=== PATIENT | female | born 1945 | race Caucasian/White ===

== ENCOUNTER 2016-05-25 17:44 | Observation (INO) ==
--- NOTE | 2016-05-25 17:55 | Emergency Department Note ---
Disposition Clinical Impression: Altered mental status, Hyperkalemia, Medication intolerance, Hilar mass Disposition: Admitted As Inpatient Condition: Fair Time of Disposition: 19:09 (savanna man) Altered Mental Status HPI - General Chief Complaint: ED Altered Mental Status Stated Complaint: ams Time Seen by Provider: 05/25/16 17:47 Source: patient Mode of arrival: ambulatory Limitations: no limitations Nursing Notes Reviewed: Yes Vital Signs Reviewed: Yes - History of Present Illness HPI Narrative: Pleasant 70-year-old female had surgery on Thursday had a pacemaker later placed according to family is only a defibrillator and today had periods of confusion may call this for about 2:00 today in the afternoon at the squad canceled then patient continued to have periods of confusion and difficulty arousing as a result squad was called to the house upon arrival patient was found diaphoretic fashion hypotensive bradycardic patient was given Narcan had some significant improvement in her overall presentation sat up on the squad bed started talking to EMS family states that this is been an ongoing issues have been intermittent late they state that she has 2 new medications or heart medications but when the pharmacy was contacted it was only Percocet and OxyContin as result this could have been a possible medication issue as well as past metabolic or infectious etiology family's had her sent in for evaluation MD complaint: confusion Onset (ago): hour(s) (12) Timing confirmed by: spouse, family member Consistency of Symptoms: waxing and waning Context: other (recent surgery and medication change) Associated symptoms: Reports: difficulty walking. Denies: chest pain, cough, diaphoresis, fever, chills, headaches, loss of appetite, malaise, nausea/ vomiting, rash, seizure, shortness of breath, syncope, weakness, foul smelling urine, incontinence - Related Data Home Medications Medication Instructions Recorded Confirmed Esomeprazole Magnesium [Nexium] 20 mg PO QAM 04/25/15 05/25/16 Gabapentin [Neurontin] 100 mg PO TID 04/25/15 05/25/16 Metoprolol [Lopressor] 25 mg PO BID 04/25/15 05/25/16 OxyCODONE ER (12 HR) [OxyCONTIN] 10 mg PO Q12HR 04/25/15 05/25/16 OxyCODONE ER (12 HR) [OxyCONTIN] 60 mg PO Q12HR 04/25/15 05/25/16 Paroxetine [Paxil] 20 mg PO DAILY 04/25/15 05/25/16 Erythromycin Base [Erythromycin] 250 mg PO DAILY 05/06/16 05/25/16 Previous Rx's Medication Instructions Recorded Aspirin 81 mg PO DAILY 365 Days 04/26/15 Budesonide/Formoterol 160/4.5 2 puff IH BIDR #1 hfa.aer.ad 04/26/15 [Symbicort] CloNIDine HCl 0.2 mg PO BID #120 tablet 04/26/15 Allergies Allergy/AdvReac Type Severity Reaction Status Date / Time povidone-iodine Allergy Hives Verified 05/06/16 14:46 [From Betadine] prednisone Allergy Hives Verified 05/06/16 14:46 promethazine [From Phenergan] Allergy Confusion Verified 05/06/16 14:46 soap [From Betadine] Allergy Hives Verified 05/06/16 14:46 All systems ED: reviewed and negative except as stated. Constitutional: Reports: weakness. Denies: fever, chills Eyes: Denies: eye pain, eye discharge, vision change ENT ED: Denies: ear pain Cardiovascular: Denies: chest pain, palpitations, dyspnea on exertion Respiratory: Denies: cough, dyspnea, wheezes Gastrointestinal: Reports: constipation. Denies: abdominal pain, nausea, vomiting Genitourinary: Denies: urgency, dysuria Musculoskeletal: Denies: back pain, neck pain Integumentary: Denies: rash, abrasion, lesions Neurological: Reports: weakness, confusion. Denies: headache, numbness, paresthesias Psychiatric: Denies: anxiety, depression Endocrine: Reports: fatigue. Denies: heat or cold intolerance, polydipsia Hematological/Lymphatic: Denies: easy bleeding, easy bruising Allergic/Immunologic: Denies: facial swelling Past Medical History - Past Medical History Attestation: Yes The following information was validated with the patient. Source: patient, old records reviewed, nursing notes reviewed Medical history: Reports: asthma, COPD, hyperlipidemia, hypertension, thyroid disease Surgical history: Reports: other Psychiatric history: Reports: anxiety, bipolar, depression, panic disorder ADVERTISING ACCOUNT MANAGER history: Reports: no ADVERTISING ACCOUNT MANAGER history - Social History Smoking Status: Current every day smoker Smokeless Tobacco Status: No Alcohol use: Reports: none Drug use: Reports: none Physical Exam - General Limitations: no limitations General appearance: alert, in no apparent distress, lethargic, obese - Head Head exam: atraumatic, normocephalic, normal inspection - Eye Eye exam: Present: normal appearance, PERRL, EOMI - ENT ENT exam: normal exam, normal oropharynx, mucous membranes moist, TM's normal bilaterally, normal external ear exam - Neck Neck exam: Present: normal inspection, full ROM, trachea midline - Chest Chest inspection: Present: normal inspection, symmetric chest wall rise, other ( Recent surgical site well approximated no drainage not red hot tender or inflamed) - Respiratory Respiratory exam: Present: normal lung sounds bilaterally - Cardiovascular Cardiovascular exam: Present: regular rate, normal rhythm, normal heart sounds - Abdominal Exam Abdominal exam: Present: soft, Non-Tender, normal bowel sounds. Absent: mass, pulsatile mass - Expanded Upper Extremity Exam Shoulder exam: Present: normal inspection, full ROM Arm exam: Present: normal inspection, full ROM Elbow exam: Present: normal inspection, full ROM Forearm/Wrist exam: Present: normal inspection, full ROM Hand exam: Present: normal inspection, full ROM Vascular exam: Normal: capillary refill, radial pulse - Expanded Lower Extremity Exam Hip/Pelvis exam: Present: normal inspection, full ROM Upper leg exam: Present: normal inspection, full ROM Knee exam: Present: normal inspection, full ROM Lower leg exam: Present: normal inspection, full ROM Ankle exam: Present: normal inspection, full ROM Foot/toe exam: Present: normal inspection, full ROM Neurovascular/Tendon exam: Present: normal capillary refill, normal fine/light touch. Absent: motor deficit, sensory deficit, tendon deficit - Back Exam Back exam: Present: normal inspection, full ROM - Neurological Exam Neurological exam: Present: alert, oriented X3, CN II-XII intact - Psychiatric Psychiatric exam: Present: normal affect, normal mood - Skin Skin exam: Present: warm, dry, intact, normal color Course Course Narrative: Patient had been given Narcan per EMS patient arrives is now alert and answering questions appropriately patient states that she just recently had a pacemaker with conversation patient was medication change with her OxyContin and her Percocet as a result this may benefit can she pitting factor to it which is why the squad gave her Narcan which did seem to appropriately responsive to her in addition we checked labs and make sure she was not septic or have an intracranial bleed all of this is come back negative with the exception of the potassium being elevated at 6 as result patient be given That she will be monitored overnight patient's transfer to [facility] service is Dr. Farias patient family agreeable very comfortable plan with paln at this time Vital Signs Temperature 98.1 F 05/25/16 17:47 Pulse Rate 61 05/25/16 17:47 Respiratory Rate 18 05/25/16 17:47 Blood Pressure 155/31 05/25/16 17:47 O2 Sat by Pulse Oximetry 97 05/25/16 17:47 Temperature 98.1 F 05/26/16 03:35 Pulse Rate 53 05/26/16 03:35 Respiratory Rate 18 05/26/16 03:35 Blood Pressure 122/72 05/26/16 03:35 O2 Sat by Pulse Oximetry 97 05/26/16 03:35 Oxygen Delivery Oxygen Delivery Nasal Cannula Altered Mental Status - Differential Diagnosis Likely: altered mental status, delirium, dementia, hyponatremia, sepsis, substance use - Medical Records Medical records reviewed: Yes I reviewed the patient's medical records. - Lab Data Lab results reviewed: Yes I reviewed the patient's lab results. Result diagrams: 05/25/16 18:00 05/25/16 18:00 Lab Results 05/25/16 05/25/16 05/25/16 Range/Units 18:00 18:00 18:00 WBC 10.9 (4.3-11.1) K/mcL RBC 3.59 L (3.82-4.97) M/mcL Hgb 10.7 L (11.5-15.4) g/dL Hct 34.1 L (35.3-44.9) % MCV 95.0 (83.0-100.0) fL MCH 29.8 (28.0-33.3) pg MCHC 31.4 L (31.6-35.5) g/dL RDW 15.6 H (11.5-14.5) % Plt Count 364 (140-400) K/mcL MPV 9.6 (9.4-12.4) fL Immature Gran % 0.4 (0-4) % Seg Neutrophils % 48.5 % Lymphocytes % 30.7 % Monocytes % 5.5 % Eosinophils % 14.2 % Basophils % 0.7 % Neutrophils # 5.3 (1.6-8.9) K/mcL Lymphocytes # 3.4 (0.6-4.6) K/mcL Monocytes # 0.6 (0.0-1.3) K/mcL Eosinophils # 1.6 H (0.0-0.6) K/mcL Basophils # 0.1 (0.0-0.2) K/mcL PT 13.4 H (9.4-12.1) Seconds INR 1.2 APTT 28.0 (26.0-36.0) Seconds Sodium 140 (136-145) mEq/L Potassium 5.9 H (3.5-4.5) mEq/L Chloride 105 (98-109) mEq/L Carbon Dioxide 26 (19-29) mEq/L BUN 18 (7-20) mg/dL Creatinine 1.67 H (0.57-1.11) mg/dL Est GFR ( Amer) 37 L (> 60) Est GFR (Non-Af Amer) 30 L (> 60) BUN/Creatinine Ratio 11 (6-26) Glucose 82 (70-99) mg/dL Calculated Osmolality 291 (280-300) Calcium 9.3 (8.6-10.8) mg/dL B-Natriuretic Peptide (0-100) pg/mL 05/25/16 Range/Units 18:00 WBC (4.3-11.1) K/mcL RBC (3.82-4.97) M/mcL Hgb (11.5-15.4) g/dL Hct (35.3-44.9) % MCV (83.0-100.0) fL MCH (28.0-33.3) pg MCHC (31.6-35.5) g/dL RDW (11.5-14.5) % Plt Count (140-400) K/mcL MPV (9.4-12.4) fL Immature Gran % (0-4) % Seg Neutrophils % % Lymphocytes % % Monocytes % % Eosinophils % % Basophils % % Neutrophils # (1.6-8.9) K/mcL Lymphocytes # (0.6-4.6) K/mcL Monocytes # (0.0-1.3) K/mcL Eosinophils # (0.0-0.6) K/mcL Basophils # (0.0-0.2) K/mcL PT (9.4-12.1) Seconds INR APTT (26.0-36.0) Seconds Sodium (136-145) mEq/L Potassium (3.5-4.5) mEq/L Chloride (98-109) mEq/L Carbon Dioxide (19-29) mEq/L BUN (7-20) mg/dL Creatinine (0.57-1.11) mg/dL Est GFR ( Amer) (> 60) Est GFR (Non-Af Amer) (> 60) BUN/Creatinine Ratio (6-26) Glucose (70-99) mg/dL Calculated Osmolality (280-300) Calcium (8.6-10.8) mg/dL B-Natriuretic Peptide 215 H (0-100) pg/mL - Radiology Data Radiology results reviewed: Yes I reviewed the patient's radiology results. ITS Impressions Chest X-Ray 05/25/16 17:49 IMPRESSION: Interval placement of left subclavian approach pacemaker/ AICD. No evidence of pneumothorax. Unchanged masslike opacity right perihilar region. No new consolidation noted. D/ / Zaire Johnson MD / Zaire Johnson MD Interpreting Provider: Zaire Johnson MD Head CT 05/25/16 17:49 IMPRESSION: Somewhat limited by motion artifact. Otherwise, no acute intracranial abnormality detected. D/ / Dayan Bach MD / Dayan Bach MD Interpreting Provider: Dayan Bach MD - EKG Data EKG attestation: Yes I reviewed and interpreted this EKG. EKG results narrative: Rhythm Sinus Alexis Heart Rate 57 PA 19 QRS 98 QT 372 Axes 39 TPA Checklist - LKW: 3-4.5 hrs Add. Contraindications Patient/family understanding: The patient/family members have been counseled and understood the risk, benefit , and alternatives of treatment. Critical Care Time Critical Care Time: No
[2016-05-25 18:12] LABS: Basophils # 0.1 K/mcL (0.0-0.2); Basophils % 0.7 %; Eosinophils # 1.6 K/mcL (0.0-0.6); Eosinophils % 14.2 %; Hematocrit 34.1 % (35.3-44.9); Hemoglobin 10.7 g/dL (11.5-15.4); Immature Granulocytes % 0.4 % (0-4); Lymphocytes # 3.4 K/mcL (0.6-4.6); Lymphocytes % 30.7 %; Mean Corpuscular HGB Conc 31.4 g/dL (31.6-35.5); Mean Corpuscular Hemoglobin 29.8 pg (28.0-33.3); Mean Platelet Volume 9.6 fL (9.4-12.4); Monocytes # 0.6 K/mcL (0.0-1.3); Monocytes % 5.5 %; Neutrophils # 5.3 K/mcL (1.6-8.9); Platelet Count 364 K/mcL (140-400); Red Blood Count 3.59 M/mcL (3.82-4.97); Red Cell Distribution Width 15.6 % (11.5-14.5); Segmented Neutrophils % 48.5 %
[2016-05-25 18:17] LABS: INR 1.2; Prothrombin Time 13.4 Seconds (9.4-12.1)
[2016-05-25 18:24] LABS: Calcium 9.3 mg/dL (8.6-10.8); Potassium 5.9 mEq/L (3.5-4.5)
[2016-05-25] MEDS ORDERED: Naloxone 0.4 MG/ML INJ IVP PRN (20:14)
[2016-05-25] MEDS ORDERED: *HR* OxyCODONE/APAP 5/325 TABLET PO ONE (20:14)
[2016-05-25] MEDS ORDERED: Ondansetron 4 MG/2 ML VIAL IVP PRN (20:14)
[2016-05-25] MEDS: 0.9 % Sodium Chloride 1,000 ML IVC SCH (20:35)
[2016-05-25] MEDS: Gabapentin 100 MG CAPSULE PO SCH (21:48)
[2016-05-25] MEDS: Budesonide/Formoterol 160/4.5 MDI IH SCH (22:51)
[2016-05-26] MEDS: 0.9 % Sodium Chloride 1,000 ML IVC SCH (06:59)
[2016-05-26] MEDS: *HR* OxyCODONE ER (12 HR) 10 MG TABLET PO SCH ×2 (07:01→07:04)
[2016-05-26 07:11] LABS: Basophils # 0.1 K/mcL (0.0-0.2); Eosinophils # 1.4 K/mcL (0.0-0.6); Eosinophils % 16.8 %; Hematocrit 31.6 % (35.3-44.9); Immature Granulocytes % 0.2 % (0-4); Lymphocytes # 2.5 K/mcL (0.6-4.6); Lymphocytes % 30.4 %; Mean Corpuscular HGB Conc 31.6 g/dL (31.6-35.5); Mean Corpuscular Volume 94.9 fL (83.0-100.0); Mean Platelet Volume 10.3 fL (9.4-12.4); Monocytes # 0.5 K/mcL (0.0-1.3); Monocytes % 6.5 %; Neutrophils # 3.7 K/mcL (1.6-8.9); Platelet Count 351 K/mcL (140-400); Red Blood Count 3.33 M/mcL (3.82-4.97); Red Cell Distribution Width 15.8 % (11.5-14.5); Segmented Neutrophils % 45.1 %
[2016-05-26 07:17] LABS: INR 1.2; Prothrombin Time 13.1 Seconds (9.4-12.1)
[2016-05-26 07:20] LABS: Activated Partial Thrombo Time 28.3 Seconds (26.0-36.0)
[2016-05-26] MEDS ORDERED: Aspirin 81 MG TAB.CHEW PO SCH (09:00)
[2016-05-26 09:04] LABS: Calcium 8.9 mg/dL (8.6-10.8)
[2016-05-26] MEDS: Budesonide/Formoterol 160/4.5 MDI IH SCH (09:27)
[2016-05-26] MEDS: *HR* OxyCODONE/APAP 5/325 TABLET PO PRN ×2 (09:32→14:06)
[2016-05-26] MEDS: Gabapentin 100 MG CAPSULE PO SCH ×2 (09:32→14:06)
--- NOTE | 2016-05-26 10:42 | Internal Med History&Physical ---
Date of Encounter: 05/26/16 Time of Encounter: 10:10 Assessment and Plan (1) Altered mental status Current visit: Yes Status: Acute Appears resolved. Suspect secondary to febrile illness and medication use. We will observe without further workup Qualifiers: Altered mental status type: unspecified Qualified Code(s): R41.82 - Altered mental status, unspecified (2) Hilar mass Current visit: Yes Status: Acute Will order repeat chest CT (3) Hyperkalemia Current visit: Yes Status: Acute Improved. Potassium level this morning is 5.0. Suspect due to renal insufficiency. We will continue to monitor. (4) CKD (chronic kidney disease) stage 3, GFR 30-59 ml/min Current visit: No Status: Chronic I recommended she follow with a buttermaker continuous churn. (5) Hypertension Current visit: No Status: Chronic Continue Lopressor and monitor blood pressure. Qualifiers: Hypertension type: essential hypertension Qualified Code(s): I10 - Essential (primary) hypertension Internal Medicine - H&P: HPI Chief complaint: Fever and lethargy Admitted From: Home Plans for Post Hospital Care: Home History of present illness: Ms. Pardo is a 70 year old female who was noted by family members to have confusion and low-grade fever earlier the morning of admission. Her temperature was 99-100 F. There was no significant cough or vomiting or diarrhea. She received 3 Tylenol at home and her fever lessened but the confusion did not improve and she became diaphoretic. She was brought to emergency room for evaluation. She was admitted to [facility] floor for ongoing care needs. She states her mental status is back to baseline now. She was hospitalized [facility] 4 weeks ago with pneumonia. A chest CT showed a 1.9 x 3.1 cm right hilar mass. There was single pulmonary nodule approximately 6.5 mm in the left upper lobe possibly representing metastatic focus. She was transferred to [facility] for further evaluation. She reports that bronchoscopy at [facility] showed no mass. There was no other workup done for the right hilar abnormality and was discharged home with a diagnosis of pneumonia. She came back to the emergency room at [facility] a few days later and was transferred to [facility] where a pacemaker defibrillator was placed. The precise qualifying diagnosis for this procedure is unknown to the patient and her daughter. Her respiratory history is significant for having smoked since age 13 up to 1 pack per day. She has not had PFTs but claims a diagnosis of COPD. She does not wear home oxygen. She has had negative testing for [place]. Past Med Surg Social Fam HX - Past Medical History Medical history: asthma, COPD, hyperlipidemia, hypertension, thyroid disease Psychiatric history: anxiety, bipolar, depression, panic disorder - Past Surgical History Surgical History: other - Social History Smoking Status: Current every day smoker Smokeless Tobacco Status: No Alcohol use: none Drug use: none - Family History Mother Living Status: Hx Family Cardiac Disorders: Yes Hx Family Cancer: Yes Hx Family Endocrine Disorder: Yes Father Adopted: No Living Status: Hx Family Cardiac Disorders: Yes Hx Family Respiratory Disorders: Yes Hx Family Cancer: Yes Hx Family Endocrine Disorder: Yes Internal Medicine - H&P: Meds Esomeprazole Magnesium [Nexium] 20 mg PO QAM 04/25/15 [History] Gabapentin [Neurontin] 100 mg PO TID 04/25/15 [History] Metoprolol [Lopressor] 25 mg PO BID 04/25/15 [History] OxyCODONE ER (12 HR) [OxyCONTIN] 10 mg PO Q12HR 04/25/15 [History] OxyCODONE ER (12 HR) [OxyCONTIN] 60 mg PO Q12HR 04/25/15 [History] Paroxetine [Paxil] 20 mg PO DAILY 04/25/15 [History] Aspirin 81 mg PO DAILY 365 Days 04/26/15 [Rx] Budesonide/Formoterol 160/4.5 [Symbicort] 2 puff IH BIDR #1 hfa.aer.ad 04/26/15 [Rx] CloNIDine HCl 0.2 mg PO BID #120 tablet 04/26/15 [Rx] Erythromycin Base [Erythromycin] 250 mg PO DAILY 05/06/16 [History] Allergies povidone-iodine [From Betadine] Allergy (Verified 05/06/16 14:46) Hives prednisone Allergy (Verified 05/06/16 14:46) Hives promethazine [From Phenergan] Allergy (Verified 05/06/16 14:46) Confusion soap [From Betadine] Allergy (Verified 05/06/16 14:46) Hives All Systems PM: A 10-system review of systems was performed and is negative for pertinent findings except as documented above in the HPI. Review of systems: Review of systems from her April 2016 [facility] history and physical were reviewed and revised as below. General: Her weight of 92.5 kg today is essentially unchanged from April 2014. Cardiovascular: She has a history of hypertension and heart failure but denies TX DVT or pulmonary embolus Respiratory: As per history of present illness GI: She has GERD and has had cholecystectomy. She denies disorders of her liver or exocrine pancreas : She has CKD stage III but does not follow with a buttermaker continuous churn. She denies other kidney or bladder disorders Neurologic: She has RLS but denies large distribution strokes. She has been noted by family in the past to have episodes of "jerking" and "staring off into space". She has not seen a neurologist. Endocrine: She has hyperlipidemia but no known diabetes or thyroid disease Hematology/oncology: She was diagnosed with rectal cancer approximately 2006. She had chemotherapy and XRT and is presumed cancer free. She denies other internal malignancies or anemia Psychiatric: She has depression and possible anxiety in the past. She denies other mental health issues Musk skeletal: She has chronic low back pain. She has had bilateral hip replacements and left TKR. She does not have known gout. She had a posterior popliteal neuroma removed and had a bunionectomy - Constitutional Vitals: Temp Pulse Resp BP Pulse Ox 98.5 F 54 18 118/54 94 L 05/26/16 06:30 05/26/16 06:30 05/26/16 09:27 05/26/16 06:30 05/26/16 09:27 Exam: Gen.: She is well-developed well-nourished female who appears in no severe distress at present time. HEENT: Head is atraumatic and normocephalic. Eyes: EOMI. There is no scleral icterus. Mouth: Mucosa is moist. Neck: Supple and nontender. There is no thyromegaly or adenopathy noted. Heart: Regular without murmurs gallops or ectopics. Lungs: No wheezes crackles or egophony is heard Chest: She has a incision in the left upper chest from recent ICD pacemaker placement. Steri-Strips are in place. Abdomen: Soft and nontender. No masses or guarding are noted. Extremities: There is no cyanosis or clubbing noted. There is trace edema at most of the dorsum of the feet and lower anterior shins. There are minimal DJD changes of her hands. Neurologic: Mental status: She is talkative and a good historian. Cranial nerves: Smile is symmetric. Forehead wrinkles bilaterally. Tongue protrudes midline. EOMI. Motor: There is no pronator drift. Cerebellar: Finger to nose is intact bilaterally. Skin: Warm and moist. Internal Med - H&P Results - Labs CBC & Chem 7: 05/26/16 06:15 05/26/16 06:15 Labs: Short CBC 05/26/16 Range/Units 06:15 WBC 8.2 (4.3-11.1) K/mcL Hgb 10.0 L (11.5-15.4) g/dL Hct 31.6 L (35.3-44.9) % Plt Count 351 (140-400) K/mcL Neutrophils # 3.7 (1.6-8.9) K/mcL BMP 05/26/16 06:15 Sodium 141 Potassium 5.0 H Chloride 107 Carbon Dioxide 26 BUN 19 Creatinine 1.57 H Glucose 84 Calcium 8.9
[2016-05-26 11:18] VITALS: BP 120/66
--- NOTE | 2016-05-26 12:50 | Discharge Summary ---
Date of Encounter: 05/26/16 Time of Encounter: 12:30 - Discharge Diagnosis (1) Altered mental status Priority: Primary Status: Resolved Qualifiers: Altered mental status type: unspecified Qualified Code(s): R41.82 - Altered mental status, unspecified (2) Hilar mass Priority: Secondary Status: Acute (3) Hyperkalemia Priority: Secondary Status: Acute (4) CKD (chronic kidney disease) stage 3, GFR 30-59 ml/min Priority: Secondary Status: Chronic (5) Hypertension Priority: Secondary Status: Chronic Qualifiers: Hypertension type: essential hypertension Qualified Code(s): I10 - Essential (primary) hypertension - Discharge Medications Home Medications: Esomeprazole Magnesium [Nexium] 20 mg PO QAM 04/25/15 [History] Gabapentin [Neurontin] 100 mg PO TID 04/25/15 [History] Metoprolol [Lopressor] 25 mg PO BID 04/25/15 [History] OxyCODONE ER (12 HR) [OxyCONTIN] 10 mg PO Q12HR 04/25/15 [History] OxyCODONE ER (12 HR) [OxyCONTIN] 60 mg PO Q12HR 04/25/15 [History] Paroxetine [Paxil] 20 mg PO DAILY 04/25/15 [History] Aspirin 81 mg PO DAILY 365 Days 04/26/15 [Rx] Budesonide/Formoterol 160/4.5 [Symbicort] 2 puff IH BIDR #1 hfa.aer.ad 04/26/15 [Rx] Erythromycin Base [Erythromycin] 250 mg PO DAILY 05/06/16 [History] Allergies/Adverse Reactions: Allergies povidone-iodine [From Betadine] Allergy (Verified 05/06/16 14:46) Hives prednisone Allergy (Verified 05/06/16 14:46) Hives promethazine [From Phenergan] Allergy (Verified 05/06/16 14:46) Confusion soap [From Betadine] Allergy (Verified 05/06/16 14:46) Hives Procedures/tests Complete & Pending: Procedures Performed prior 72 hours Category Date Time Status CT chest w/o contrast [CT chest wo con] [CT] Routine Cat Scan 05/26/16 10:48 Completed Date of admission: 05/25/16 19:26 Primary care physician: Irina Gold - Patient Status Disposition: Home, Self-Care Condition: Fair Overall status at discharge: patient is progressing back to baseline - Discharge Instructions Follow Up With: Irina Gold MD [Primary Care Provider] - 1 week - Diet and Activity Activity: resume usual activities as tolerated Diet: advance to your usual diet Hospital course: Ms. Pardo is a 70 year old female who was noted by family members to have confusion and low-grade fever earlier the morning of admission. Her temperature was 99-100 F. There was no significant cough or vomiting or diarrhea. She received 3 Tylenol at home and her fever lessened but the confusion did not improve and she became diaphoretic. She was brought to emergency room for evaluation. She was admitted to [facility] for ongoing care needs. Initial orders were written by the emergency room physician. I saw her on May 26 and performed a history and physical. Her mental status was back to baseline when I saw her. I did repeat CT of chest to follow-up on the right hilar mass seen one month earlier during [facility] stay. The right hilar mass had decreased in size to 1.9 x 1.2 cm. The left upper lobe noncalcified lesion was essentially unchanged. It was recommended a repeat chest CT be done in approximately [address] Gold can order this as an outpatient. Her blood pressure remains stable. She reported she had not been using clonidine at home so this will not be restarted at discharge. She will continue Lopressor. Her creatinine improved slightly to 1.57 on May 26. This was still higher than her Aleksander level at discharge of 1.20. I recommended she inquire with Dr. Gold about referral to a master fire control technician. On the afternoon of May 26 she felt she was stable for discharge home. She will follow Dr. Gold within 1 week. I encouraged her to become a nonsmoker. - Time Spent with Patient Total time spent providing and/or coordinating discharge services: - Constitutional Vitals: Temp Pulse Resp BP Pulse Ox 98.1 F 55 18 120/66 95 05/26/16 11:00 05/26/16 11:00 05/26/16 11:00 05/26/16 11:00 05/26/16 11:00
--- NOTE | 2016-05-26 15:04 | Electrocardiograph Report ---
[facility] Test Date: 2016-05-25 Pat Name: Nayeli Pardo Department: [id number] Room: [facility] Gender: F [employer]ilities Rental Manager: [id number] : 1945 Requested By: Carol Martinez Order Number: [id number] Reading MD: Isaak Mancilla DO Measurements Intervals [place] Rate: 57 P: 53 CT: 194 QRS: 39 QRSD: 98 T: 50 QT: 372 QTc: 366 Interpretive Statements Sinus bradycardia with sinus arrhythmia Electronically Signed On 05-26-16 14:02:01 EST by Isaak Mancilla DO
== END 2016-05-26 14:30 | disposition home or self-care (01) ==
LOC: EMEROOPIK 17:44 → INPPIK 17:44
PROVIDERS: ADMIT Internal Medicine; ATTEND Internal Medicine